=== PATIENT | female | born 1965 | race Caucasian/White ===

== ENCOUNTER 2017-03-31 14:53 | Inpatient (IN) | payer MEDICARE, MEDICAID, OTHER ==
[~2017-03-31] VITALS: Ht 152.4 cm; Wt 63.7 kg
[2017-03-31 15:15] VITALS: BP 173/99; PULSE 93; RESP 20; TEMP 98.8; O2SAT 97
[2017-03-31] MEDS ORDERED: PROV200T11 PO (15:31)
[2017-03-31] MEDS ORDERED: EFFE150C PO (15:31)
[2017-03-31] MEDS ORDERED: LAMO150 PO (15:31)
[2017-03-31] MEDS ORDERED: ARIP1TAB7 PO (15:31)
[2017-03-31] MEDS ORDERED: CLON1TAB PO (15:31)
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
[2017-03-31 16:23] LABS: AUTOMATED NEUTROPHIL # 7.4 TH/MM3 (1.8-7.7); BASOPHIL % 0.4 % (0.0-2.0); EOSINOPHIL % 0.2 % (0.0-4.0); HEMO FLAGS DIFF FINAL; LYMPH % 16.1 % (9.0-44.0); LYMPHOCYTE # 1.6 TH/MM3 (1.0-4.8); MEAN CELL VOLUME 82.9 FL (80.0-100.0); MEAN CORPUSCULAR HEMOGLOBIN 26.5 PG (27.0-34.0); NEUT % 76.3 % (16.0-70.0); PLATELET COUNT 316 TH/MM3 (150-450); RED BLOOD COUNT 4.71 MIL/MM3 (4.00-5.30); RED CELL DISTRIBUTION WIDTH 15.2 % (11.6-17.2); WHITE BLOOD COUNT 9.7 TH/MM3 (4.0-11.0)
[2017-03-31 16:42] LABS: ACETAMINOPHEN 5.2 MCG/ML (10.0-30.0); ALKALINE PHOSPHATASE 74 U/L (45-117); ALT (GPT) 39 U/L (10-53); TOTAL BILIRUBIN ADULT 0.2 MG/DL (0.2-1.0)
[2017-03-31 16:51] LABS: ANION GAP 8 MEQ/L (5-15); AST (GOT) 57 U/L (15-37); BICARBONATE 24.1 MEQ/L (21.0-32.0); BLOOD UREA NITROGEN 12 MG/DL (7-18); CHLORIDE 105 MEQ/L (98-107); GLOMERULAR FILTRATION RATE 80 ML/MIN (>89); POTASSIUM 3.7 MEQ/L (3.5-5.1); SODIUM (NA) 137 MEQ/L (136-145)
[2017-03-31] MEDS ORDERED: LORazepam 0.5 MG TAB PO PRN (17:00)
[2017-03-31] MEDS ORDERED: diphenhydrAMINE HCL 50 MG/ML VIAL IM PRN (17:00)
[2017-03-31] MEDS ORDERED: LORazepam 2 MG/ML VIAL IM PRN ×2 (17:00)
[2017-03-31] MEDS ORDERED: MAGNESIUM HYDROXIDE SUSP 30 ML CUP PO PRN (17:00)
[2017-03-31] MEDS ORDERED: ALUMINUM/MAGNESIUM/SIMETH 30 ML CUP PO PRN (17:00)
[2017-03-31] MEDS ORDERED: LORazepam 1 MG TAB PO PRN (17:00)
[2017-03-31 17:01] LABS: ALCOHOL LESS THAN 3 MG/DL (0-5)
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
[2017-03-31] MEDS ORDERED: PILL SPLITTER OTHER PRN (17:15)
[2017-03-31] MEDS: clonazePAM 1 MG TAB PO SCH (20:11)
[2017-03-31 21:40] VITALS: BP 147/78; PULSE 100; RESP 18; TEMP 99.1; O2SAT 100
[2017-03-31] MEDS: ACETAMINOPHEN 325 MG TAB PO PRN (23:45)
[2017-03-31] MEDS: diphenhydrAMINE HCL 50 MG CAP PO PRN (23:46)
[2017-04-01 06:02] VITALS: BP 122/67; PULSE 78; RESP 18; TEMP 97.6
[2017-04-01] MEDS: VENLAFAXINE HCL XR 75 MG CAP PO SCH (08:49)
[2017-04-01] MEDS: lamoTRIgine 100 MG TAB PO SCH (08:50)
[2017-04-01] MEDS: clonazePAM 1 MG TAB PO SCH ×2 (08:50→20:25)
--- NOTE | 2017-04-01 09:12 | EKG ---
Date Performed: 03/31/2017 Time Performed: 18:20:07 PTAGE: 51 years EKG: Sinus rhythm NORMAL ECG NO PREVIOUS TRACING DOCTOR: Ghanshyam Zamudio Interpretating Date/Time 04/01/2017 09:03:43
[2017-04-01] MEDS: ACETAMINOPHEN 325 MG TAB PO PRN ×3 (09:45→19:32)
[2017-04-01 11:03] LABS: BASOPHIL % 0.4 % (0.0-2.0); EOSINOPHIL # 0.1 TH/MM3 (0-0.4); EOSINOPHIL % 2.1 % (0.0-4.0); HEMATOCRIT 38.3 % (35.0-46.0); HEMO FLAGS DIFF FINAL; LYMPH % 29.8 % (9.0-44.0); LYMPHOCYTE # 1.5 TH/MM3 (1.0-4.8); MEAN CELL VOLUME 82.4 FL (80.0-100.0); MEAN CORPUSCULAR HEMOGLOBIN 26.6 PG (27.0-34.0); MEAN CORPUSCULAR HGB CONC 32.3 % (32.0-36.0); NEUT % 59.7 % (16.0-70.0); PLATELET COUNT 289 TH/MM3 (150-450); RED BLOOD COUNT 4.64 MIL/MM3 (4.00-5.30); RED CELL DISTRIBUTION WIDTH 15.5 % (11.6-17.2); WHITE BLOOD COUNT 5.1 TH/MM3 (4.0-11.0)
[2017-04-01] MEDS: REMOVE OLD PATCH T-DERMAL SCH (14:00)
[2017-04-01] MEDS: NICOTINE 21 MG/24 HR PATCH T-DERMAL SCH (14:00)
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
[2017-04-01 17:13] LABS: HEMOGLOBIN A1a 1.2 %; HEMOGLOBIN A1b 1.6 %; HEMOGLOBIN LA1C 2.1 %
[2017-04-01 18:03] VITALS: BP 111/74; PULSE 75; RESP 18; TEMP 98; O2SAT 98
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
[2017-04-02] MEDS: diphenhydrAMINE HCL 50 MG CAP PO PRN (03:00)
[2017-04-02] MEDS: ACETAMINOPHEN 325 MG TAB PO PRN ×3 (03:15→18:20)
[2017-04-02 05:55] VITALS: BP 122/72; PULSE 81; RESP 18; TEMP 97.4; O2SAT 98
[2017-04-02] MEDS: VENLAFAXINE HCL XR 75 MG CAP PO SCH (07:48)
[2017-04-02] MEDS: clonazePAM 1 MG TAB PO SCH ×2 (07:49→20:21)
[2017-04-02] MEDS: lamoTRIgine 100 MG TAB PO SCH (07:49)
[2017-04-02] MEDS: NICOTINE 21 MG/24 HR PATCH T-DERMAL SCH (09:00)
[2017-04-02] MEDS: REMOVE OLD PATCH T-DERMAL SCH (09:00)
[2017-04-02 11:23] LABS: ANION GAP 3 MEQ/L (5-15); AST (GOT) 34 U/L (15-37); BICARBONATE 27.7 MEQ/L (21.0-32.0); BLOOD UREA NITROGEN 16 MG/DL (7-18); CHLORIDE 103 MEQ/L (98-107); GLOMERULAR FILTRATION RATE 99 ML/MIN (>89); POTASSIUM 4.4 MEQ/L (3.5-5.1); SODIUM (NA) 134 MEQ/L (136-145)
[2017-04-02 11:51] LABS: ALKALINE PHOSPHATASE 65 U/L (45-117); ALT (GPT) 35 U/L (10-53); HDL CHOLESTEROL 41.7 MG/DL (40.0-60.0); LDL CHOLESTEROL 107 MG/DL (0-99); TOTAL BILIRUBIN ADULT 0.2 MG/DL (0.2-1.0)
--- NOTE | 2017-04-02 14:42 | EKG ---
Date Performed: 04/01/2017 Time Performed: 15:15:56 PTAGE: 51 years EKG: Sinus rhythm NORMAL ECG PREVIOUS TRACING : 03/31/2017 18.20 Since previous tracing, no significant change noted DOCTOR: Kuldip Hernandez Interpretating Date/Time 04/02/2017 14:40:12
--- NOTE | 2017-04-02 17:43 | HHI.PYPN ---
Subjective Remarks Patient seen for follow-up, chart review. Patient found interacting with staff patient states he is feeling "fine", patient noted with less pressured speech today. Patient states that she has been participating in all the groups and activities on the unit. Patient reports tolerating medications well. Patient percent of on discharge. When asked if patient is able to be safely accepted back at her home she states that it is her house but unclear whether he'll be a safe discharge back there at this time. Patient denies any psychotic symptoms at this time. Patient denies SI, HI, AVH but continues with some grandiose delusions. Review of Systems Except as stated in HPI: all other systems reviewed are Neg Objective Alert: Yes [place]: Person, Place, Date Mood: Anxious Affect: Restricted Memory Intact: Immediate, Recent, Remote Hallucinations: Other (denies) Delusions: Yes Delusion Type: Grandiose Suicidal: Ideation (denies) Homicidal: Ideation (denies) Insight/Judgment Patient will limited insight, impulse control and judgment Labs Labs reviewed. Test 04/02/17 10:15 Sodium Level 134 MEQ/L Potassium Level 4.4 MEQ/L Chloride Level 103 MEQ/L Carbon Dioxide Level 27.7 MEQ/L Anion Gap 3 MEQ/L Blood Urea Nitrogen 16 MG/DL Creatinine 0.63 MG/DL Estimat Glomerular Filtration 99 ML/MIN Rate Random Glucose 83 MG/DL Calcium Level 8.6 MG/DL Total Bilirubin 0.2 MG/DL Aspartate Amino Transf 34 U/L (AST/SGOT) Alanine Aminotransferase 35 U/L (ALT/SGPT) Alkaline Phosphatase 65 U/L Total Protein 7.0 GM/DL Albumin 3.2 GM/DL Triglycerides Level 135 MG/DL Cholesterol Level 176 MG/DL LDL Cholesterol 107 MG/DL HDL Cholesterol 41.7 MG/DL Cholesterol/HDL Ratio 4.22 RATIO Vitamin B12 Level 480 PG/ML 25-Hydroxy Vitamin D Total 30.1 ng/ML Thyroid Stimulating Hormone 0.908 uIU/ML 3rd Gen Vitals/IOs Vital Signs Date Time Temp Pulse Resp B/P Pulse Ox O2 Delivery O2 Flow Rate FiO2 04/02/17 05:55 97.4 81 18 122/72 98 Intake and Output 04/01/17 04/01/17 04/01/17 07:59 15:59 23:59 Intake Total 240 ml Balance 240 ml Assessment & Plan Problem List: (1) Bipolar affective disorder, currently manic, severe, with psychotic features ICD Code: F31.2 Assessment & Plan Patient at this time continues to be noted to have some pressured speech but less than yesterday, continues to be somewhat tangential but compliant with medications. If patient continues to endorse manic symptoms will consider increasing Lamictal to 200 mg by mouth daily for mood stabilization. Positive medication response and adverse drug reactions. Discharge planning in progress Justification for Cont. Inpt. Patient at risk for further decompensation if at lower level of care. Discharge Planning In progress Messi Briggs MD Apr 02, 2017 17:43
[2017-04-02 17:48] VITALS: PULSE 82; RESP 18; TEMP 98.5; O2SAT 98
[2017-04-03] MEDS: ACETAMINOPHEN 325 MG TAB PO PRN ×3 (05:40→17:43)
[2017-04-03 05:51] VITALS: BP 141/70; PULSE 76; RESP 16; TEMP 97.9; O2SAT 98
[2017-04-03] MEDS: clonazePAM 1 MG TAB PO SCH ×2 (07:44→20:44)
[2017-04-03] MEDS: VENLAFAXINE HCL XR 75 MG CAP PO SCH (07:44)
[2017-04-03] MEDS: NICOTINE 21 MG/24 HR PATCH T-DERMAL SCH (07:45)
[2017-04-03] MEDS: REMOVE OLD PATCH T-DERMAL SCH (07:45)
[2017-04-03] MEDS: lamoTRIgine 100 MG TAB PO SCH (07:45)
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
[2017-04-03 18:27] VITALS: BP 148/74; PULSE 85; RESP 17; TEMP 98.1; O2SAT 98
[2017-04-03] MEDS: diphenhydrAMINE HCL 50 MG CAP PO PRN (20:44)
[2017-04-04] MEDS: ACETAMINOPHEN 325 MG TAB PO PRN ×3 (05:54→19:13)
[2017-04-04 06:09] VITALS: BP 130/82; PULSE 72; RESP 19; TEMP 98.4; O2SAT 100
[2017-04-04] MEDS: NICOTINE 21 MG/24 HR PATCH T-DERMAL SCH (09:00)
[2017-04-04] MEDS: clonazePAM 1 MG TAB PO SCH ×2 (09:00→20:05)
[2017-04-04] MEDS: lamoTRIgine 100 MG TAB PO SCH (09:00)
[2017-04-04] MEDS: VENLAFAXINE HCL XR 75 MG CAP PO SCH (09:00)
[2017-04-04] MEDS: REMOVE OLD PATCH T-DERMAL SCH (09:00)
[2017-04-04 17:00] VITALS: BP 129/72; PULSE 84; RESP 18; TEMP 98.6; O2SAT 96
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
[2017-04-05 05:34] VITALS: BP 119/78; PULSE 78; RESP 18; TEMP 97.8; O2SAT 97
[2017-04-05] MEDS: VENLAFAXINE HCL XR 75 MG CAP PO SCH (08:10)
[2017-04-05] MEDS: lamoTRIgine 100 MG TAB PO SCH (08:10)
[2017-04-05] MEDS: clonazePAM 1 MG TAB PO SCH ×2 (08:10→20:07)
[2017-04-05] MEDS: NICOTINE 21 MG/24 HR PATCH T-DERMAL SCH (08:22)
[2017-04-05] MEDS: REMOVE OLD PATCH T-DERMAL SCH (08:22)
[2017-04-05 18:10] VITALS: BP 113/72; PULSE 87; RESP 16; TEMP 99; O2SAT 99
[2017-04-05] MEDS: ACETAMINOPHEN 325 MG TAB PO PRN (18:23)
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
[2017-04-05] MEDS: diphenhydrAMINE HCL 50 MG CAP PO PRN (20:07)
[2017-04-06 05:46] VITALS: BP 112/82; PULSE 79; RESP 18; TEMP 98.2; O2SAT 97
[2017-04-06] MEDS: ARIPiprazole 30 MG TAB PO SCH (07:53)
[2017-04-06] MEDS: lamoTRIgine 100 MG TAB PO SCH (07:54)
[2017-04-06] MEDS: clonazePAM 1 MG TAB PO SCH ×2 (07:55→20:39)
[2017-04-06] MEDS: VENLAFAXINE HCL XR 75 MG CAP PO SCH (07:55)
[2017-04-06] MEDS: NICOTINE 21 MG/24 HR PATCH T-DERMAL SCH (07:55)
[2017-04-06] MEDS: REMOVE OLD PATCH T-DERMAL SCH (07:55)
[2017-04-06] MEDS: ACETAMINOPHEN 325 MG TAB PO PRN ×3 (07:57→18:40)
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
[2017-04-06 17:45] VITALS: BP 106/61; PULSE 77; RESP 18; TEMP 98.4; O2SAT 97
[2017-04-06] MEDS: diphenhydrAMINE HCL 50 MG CAP PO PRN (20:39)
[2017-04-07 06:16] VITALS: BP 133/63; PULSE 74; RESP 18; TEMP 98; O2SAT 98
[2017-04-07] MEDS: lamoTRIgine 100 MG TAB PO SCH (08:25)
[2017-04-07] MEDS: ARIPiprazole 30 MG TAB PO SCH (08:25)
[2017-04-07] MEDS: clonazePAM 1 MG TAB PO SCH (08:25)
[2017-04-07] MEDS: VENLAFAXINE HCL XR 75 MG CAP PO SCH (08:25)
[2017-04-07] MEDS ORDERED: VENL75XR PO (08:43)
[2017-04-07] MEDS ORDERED: ABIL30TA2 PO (08:43)
[2017-04-07] MEDS ORDERED: CLON1 PO (08:43)
[2017-04-07] MEDS ORDERED: LAMO150T PO (08:43)
[2017-04-07] MEDS: REMOVE OLD PATCH T-DERMAL SCH (09:00)
[2017-04-07] MEDS: NICOTINE 21 MG/24 HR PATCH T-DERMAL SCH (09:00)
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
== END 2017-04-07 12:30 | disposition home or self-care (01) | DRG 885 ==
LOC: NEPD 14:53 → NEDA 16:51 → H270 19:25
PROVIDERS: ADMIT Student in an Organized Health Care Education/Training Program; ATTEND Student in an Organized Health Care Education/Training Program
DX: F31.2 Bipolar disorder, current episode manic severe with psychotic features (principal); Z91.14 Patient's other noncompliance with medication regimen
CPT/HCPCS: 73130; 73564; 80053; 80061; 80307; 82306; 82607; 83036; 84443; 85025; 93005; 99285; Q0163

== ENCOUNTER 2017-06-07 14:18 | Emergency (ER) | payer MEDICARE, MEDICAID ==
[~2017-06-07] VITALS: Ht 152.4 cm; Wt 60.0 kg
[~2017-06-07 14:18] MED LIST: ABIL30TA2 PO; ARIP1TAB7 PO; CLON1 PO; LAMO150T PO; PROV200T11 PO; VENL75XR PO
[2017-06-07 14:20] VITALS: BP 96/60; PULSE 87; RESP 15; TEMP 98.4; O2SAT 98
[2017-06-07] MEDS ORDERED: BACT800T5 PO (19:22)
[2017-06-07] MEDS ORDERED: unknown meds (19:26)
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
--- NOTE | 2017-06-07 19:27 | PD ---
HPI Chief Complaint: Lump, Cyst, Hernia Time Seen by Provider: 19:15 Travel History International Travel<30 days: No Contact w/Intl Traveler<30days: No Traveled to known affect area: No History of Present Illness HPI 51-year-old white female a resident at [facility] presents emergency Department with a counselor for evaluation of a left posterior thigh skin infection. She states that this is been present for the past week. The area is painful. The area is also red and tender. She states that she has had some draining. She denies any history of skin infections. No fever chills. No nausea vomiting. No bowel pain or symptoms. PFSH Past Medical History Narrative Medical Anxiety, bipolar Bipolar Disorder: Yes Anxiety: Yes Cancer: No (per pt) Cardiovascular Problems: No Cerebrovascular Accident: No Diabetes: No (per pt) Diminished Hearing: No Headaches: No (per pt) Musculoskeletal: No Psychiatric: Yes (Bipolar per pt 2003) Respiratory: No Migraines: No Seizures: No Tetanus Vaccination: < 5 Years Tubal Ligation: Yes Past Surgical History Abdominal Surgery: No Cardiac Surgery: No Ear Surgery: No Endocrine Surgery: No Eye Surgery: No Genitourinary Surgery: No Gynecologic Surgery: No Oral Surgery: No Thoracic Surgery: No Other Surgery: Yes (bilat. bunion surgery) Social History Alcohol Use: No Tobacco Use: No Substance Use: No Allergies-Medications (Allergen,Severity, Reaction): Coded Allergies: Penicillins (Verified Allergy, Unknown, 03/31/17) Reported Meds & Prescriptions Reported Meds & Active Scripts Active Bactrim DS (Sulfamethoxazole-Trimethoprim) 800-160 Mg Tab 1 Tab PO BID Abilify (Aripiprazole) 30 Mg Tab 30 Mg PO DAILY 30 Days Effexor XR 24 HR (Venlafaxine HCl) 75 Mg Cap 150 Mg PO DAILY 30 Days Lamotrigine 150 Mg Tab 150 Mg PO DAILY Klonopin (Clonazepam) 1 Mg Tab 1 Mg PO BID 15 Days Reported Provigil (Modafinil) 200 Mg Tab 200 Mg PO BID Abilify (Aripiprazole) 20 Mg Tab 20 Mg PO DAILY Review of Systems Except as stated in HPI: all other systems reviewed are Neg Physical Exam Narrative GENERAL: This is a well-nourished, well-developed patient, in no apparent distress. Patient's examined with the [employer] police present. SKIN: Patient has a 2 cm erythema with open draining area to the posterior left proximal thigh. It is tender but there is no fluctuance or pointing. The skin is somewhat indurated. Ecchymoses or lesions. Warm and dry. HEAD: Atraumatic. Normocephalic. EYES: PERRL, EOMI, no discharge or injection. No scleral icterus. EARS: Clear NOSE: Nasal turbinates appear normal. THROAT: Mucosa pink and moist. Airway patent. NECK: Trachea midline. supple, moves head freely. LUNGS: Clear to auscultation. CV: Regular in rhythm. ABDOMEN: Soft nontender. EXT: No clubbing cyanosis or edema. Data Data Last Documented VS Vital Signs Date Time Temp Pulse Resp B/P (MAP) Pulse Ox O2 Delivery O2 Flow Rate FiO2 06/07/17 14:20 98.4 87 15 96/60 (72) 98 [facility] Medical Decision Making Medical Screen Exam Complete: Yes Emergency Medical Condition: Yes Medical Record Reviewed: Yes Differential Diagnosis MDM: High Differential diagnoses: Abscess, folliculitis, cellulitis, lymphangitis, abrasion, contact dermatitis Narrative Course Patient has a open draining abscess to the posterior left thigh. Diagnosis Primary Impression: left posterior thigh abscess Patient Instructions: General Instructions Additional Instructions: Rest. Elevation. keep clean and dry. Warm compresses. Daily wound care with soap, water and Neosporin. Three Advil every 6 hours as needed for pain. Bactrim DS. Follow-up with a primary care doctor in one week. Return to the ER for any problems. Med/Other Pt SpecificInfo: Prescription(s) given, Wound Care Scripts Sulfamethoxazole-Trimethoprim (Bactrim DS) 800-160 Mg Tab 1 TAB PO BID for Infection, #20 TAB 0 Refills Prov: Nida Huynh DO 06/07/17 Disposition: 65 DISC TO [facility] Condition: Stable Bon Lnig Jun 07, 2017 19:27
--- NOTE | 2017-06-07 19:27 | PD ---
HPI Chief Complaint: Lump, Cyst, Hernia Time Seen by Provider: 19:15 Travel History International Travel<30 days: No Contact w/Intl Traveler<30days: No Traveled to known affect area: No History of Present Illness HPI 51-year-old white female a resident at [facility] presents emergency Department with a counselor for evaluation of a left posterior thigh skin infection. She states that this is been present for the past week. The area is painful. The area is also red and tender. She states that she has had some draining. She denies any history of skin infections. No fever chills. No nausea vomiting. No bowel pain or symptoms. PFSH Past Medical History Narrative Medical Anxiety, bipolar Bipolar Disorder: Yes Anxiety: Yes Cancer: No (per pt) Cardiovascular Problems: No Cerebrovascular Accident: No Diabetes: No (per pt) Diminished Hearing: No Headaches: No (per pt) Musculoskeletal: No Psychiatric: Yes (Bipolar per pt 2003) Respiratory: No Migraines: No Seizures: No Tetanus Vaccination: < 5 Years Tubal Ligation: Yes Past Surgical History Abdominal Surgery: No Cardiac Surgery: No Ear Surgery: No Endocrine Surgery: No Eye Surgery: No Genitourinary Surgery: No Gynecologic Surgery: No Oral Surgery: No Thoracic Surgery: No Other Surgery: Yes (bilat. bunion surgery) Social History Alcohol Use: No Tobacco Use: No Substance Use: No Allergies-Medications (Allergen,Severity, Reaction): Coded Allergies: Penicillins (Verified Allergy, Unknown, 03/31/17) Reported Meds & Prescriptions Reported Meds & Active Scripts Active Bactrim DS (Sulfamethoxazole-Trimethoprim) 800-160 Mg Tab 1 Tab PO BID Abilify (Aripiprazole) 30 Mg Tab 30 Mg PO DAILY 30 Days Effexor XR 24 HR (Venlafaxine HCl) 75 Mg Cap 150 Mg PO DAILY 30 Days Lamotrigine 150 Mg Tab 150 Mg PO DAILY Klonopin (Clonazepam) 1 Mg Tab 1 Mg PO BID 15 Days Reported Provigil (Modafinil) 200 Mg Tab 200 Mg PO BID Abilify (Aripiprazole) 20 Mg Tab 20 Mg PO DAILY Review of Systems Except as stated in HPI: all other systems reviewed are Neg Physical Exam Narrative GENERAL: This is a well-nourished, well-developed patient, in no apparent distress. Patient's examined with the [place] police present. SKIN: Patient has a 2 cm erythema with open draining area to the posterior left proximal thigh. It is tender but there is no fluctuance or pointing. The skin is somewhat indurated. Ecchymoses or lesions. Warm and dry. HEAD: Atraumatic. Normocephalic. EYES: PERRL, EOMI, no discharge or injection. No scleral icterus. EARS: Clear NOSE: Nasal turbinates appear normal. THROAT: Mucosa pink and moist. Airway patent. NECK: Trachea midline. supple, moves head freely. LUNGS: Clear to auscultation. CV: Regular in rhythm. ABDOMEN: Soft nontender. EXT: No clubbing cyanosis or edema. Data Data Last Documented VS Vital Signs Date Time Temp Pulse Resp B/P (MAP) Pulse Ox O2 Delivery O2 Flow Rate FiO2 06/07/17 14:20 98.4 87 15 96/60 (72) 98 [facility] Medical Decision Making Medical Screen Exam Complete: Yes Emergency Medical Condition: Yes Medical Record Reviewed: Yes Differential Diagnosis MDM: High Differential diagnoses: Abscess, folliculitis, cellulitis, lymphangitis, abrasion, contact dermatitis Narrative Course Patient has a open draining abscess to the posterior left thigh. Diagnosis Primary Impression: left posterior thigh abscess Patient Instructions: General Instructions Additional Instructions: Rest. Elevation. keep clean and dry. Warm compresses. Daily wound care with soap, water and Neosporin. Three Advil every 6 hours as needed for pain. Bactrim DS. Follow-up with a primary care doctor in one week. Return to the ER for any problems. Med/Other Pt SpecificInfo: Prescription(s) given, Wound Care Scripts Sulfamethoxazole-Trimethoprim (Bactrim DS) 800-160 Mg Tab 1 TAB PO BID for Infection, #20 TAB 0 Refills Prov: Nida Huynh DO 06/07/17 Disposition: 65 DISC TO [facility] Condition: Stable Bon Ling Jun 07, 2017 19:27
[2017-06-07 19:51] VITALS: BP 108/54
== END 2017-06-07 19:50 ==
LOC: NEPD 14:18
DX: L02.416 Cutaneous abscess of left lower limb (principal)
CPT/HCPCS: 99283

== ENCOUNTER 2017-06-09 14:32 | Emergency (ER) | payer MEDICARE, MEDICAID ==
[~2017-06-09] VITALS: Ht 152.4 cm; Wt 62.0 kg
[~2017-06-09 14:32] MED LIST changes: -ABIL30TA2 PO; -ARIP1TAB7 PO; +BACT800T5 PO; -CLON1 PO; -LAMO150T PO; -PROV200T11 PO; -VENL75XR PO; +unknown meds
[2017-06-09 14:42] VITALS: TEMP 98.1
--- NOTE | 2017-06-09 14:53 | PD ---
HPI Chief Complaint: Wound/Suture/Staple Re-Check Time Seen by Provider: 14:51 Travel History International Travel<30 days: No Contact w/Intl Traveler<30days: No Traveled to known affect area: No History of Present Illness HPI 51-year-old female presents emergency department from [facility] for evaluation of an abscess to her left posterior thigh. She said she was seen here 2 days ago and mentioned it and was given antibiotics. Has been taking Bactrim as prescribed. Says there is been no improvement in the abscess. Denies fever, vomiting. Took ibuprofen 800 mg prior to arrival. Rates pain 5/ 10. Describes it as an aching sensation. Pain is aggravated with sitting or palpation of the area. Has no other medical complaints. Allergies to penicillins. No other modifying factors or associated signs and symptoms. PFSH Past Medical History Bipolar Disorder: Yes Anxiety: Yes Cardiovascular Problems: No Cerebrovascular Accident: No Diabetes: No (per pt) Diminished Hearing: No Musculoskeletal: No Psychiatric: Yes (Bipolar per pt 2003) Respiratory: No Migraines: No Seizures: No ?: Not Tubal Ligation: Yes Past Surgical History Abdominal Surgery: No Cardiac Surgery: No Ear Surgery: No Endocrine Surgery: No Eye Surgery: No Genitourinary Surgery: No Gynecologic Surgery: No Oral Surgery: No Thoracic Surgery: No Other Surgery: Yes (bilat. bunion surgery) Social History Alcohol Use: No Tobacco Use: No Substance Use: No Allergies-Medications (Allergen,Severity, Reaction): Coded Allergies: Penicillins (Verified Allergy, Unknown, 03/31/17) Reported Meds & Prescriptions Reported Meds & Active Scripts Active Bactrim DS (Sulfamethoxazole-Trimethoprim) 800-160 Mg Tab 1 Tab PO BID Reported [unknown meds] Review of Systems Except as stated in HPI: all other systems reviewed are Neg Physical Exam Narrative GENERAL: Well-nourished, well-developed female patient, in no acute distress; afebrile, nontoxic-appearing SKIN: There is an indurated area to the left posterior upper thigh which measures about 2cm cm in diameter. It is fluctuant and it is open and draining purulent drainage. There is a zone of inflammation around it but no lymphangitis. HEAD: Atraumatic. Normocephalic. EYES: Pupils equal and round. No scleral icterus. No injection or drainage. ENT: Mucosa pink and moist. Airway patent. NECK: Trachea midline. CARDIOVASCULAR: Regular rate. RESPIRATORY: No accessory muscle use. GASTROINTESTINAL: Flat. MUSCULOSKELETAL: No obvious deformities. No clubbing. No cyanosis. No edema. NEUROLOGICAL: Awake and alert. Oriented 3. No obvious cranial nerve deficits. Motor grossly within normal limits. Normal speech. PSYCHIATRIC: Appropriate mood and affect; insight and judgment normal. Data Data Last Documented VS Vital Signs Date Time Temp Pulse Resp B/P (MAP) Pulse Ox O2 Delivery O2 Flow Rate FiO2 06/09/17 14:42 98.1 Orders Orders Ed Discharge Order (06/09/17 14:53) Wound Culture And Gram Stain (06/09/17 14:54) [facility] Medical Decision Making Medical Screen Exam Complete: Yes Emergency Medical Condition: Yes Medical Record Reviewed: Yes Differential Diagnosis Abscess, cellulitis, folliculitis Narrative Course 51-year-old female with an abscess of her left upper posterior thigh. She is here from [facility] for evaluation. She was seen on June 07 and was prescribed Bactrim which she has been taking. The abscess is now open and draining. The abscess was squeezed and drained. Wound culture pending. She is afebrile and nontoxic-appearing. Denies fever, vomiting. Instructed patient to continue Bactrim as prescribed. Patient has ibuprofen for pain. Instructed patient to follow up with primary care provider. Patient verbalizes understanding and agreement with treatment plan. Patient is medically cleared and stable for discharge. Discussed reasons to return to the emergency department. Patient agrees with treatment plan. The patients vital signs are stable and the patient is stable for outpatient follow-up and treatment. Patient discharged home, stable and in no acute distress. Diagnosis Primary Impression: Abscess of left thigh Referrals: [facility] Primary Care Physician Patient Instructions: Abscess (ED), Abscess Follow-up (ED), General Instructions Additional Instructions: Complete full course of antibiotics Warm compresses to the affected area Keep area clean and dry Ibuprofen or Tylenol as directed and as needed for pain and inflammation Follow-up with primary care provider Return to emergency department immediately with worsening of symptoms Med/Other Pt SpecificInfo: No Change to Meds, No Meds Exist/No RX given Disposition: 01 DISCHARGE HOME Condition: Stable Shelly Vides Jun 09, 2017 14:53
[2017-06-09 14:54] VITALS: BP 107/64; PULSE 72; RESP 17; O2SAT 94
--- NOTE | 2017-06-09 15:07 | PD ---
Physical Exam Date Seen by Provider: Jun 09, 2017 Narrative This patient presents for a patient of an abscess on her left posterior thigh just distal to the buttock. She was seen here 2 days ago for same. She was placed on Bactrim. She was then sent to [facility] under a [place] [facility]. She is back with us today for recheck. Data Data Last Documented VS Vital Signs Date Time Temp Pulse Resp B/P (MAP) Pulse Ox O2 Delivery O2 Flow Rate FiO2 06/09/17 14:54 72 17 107/64 (78) 94 Room Air 06/09/17 14:42 98.1 Orders Orders Ed Discharge Order (06/09/17 14:53) Wound Culture And Gram Stain (06/09/17 14:54) MDM Supervised Visit with CR: Yes Narrative Course I, Dr. Ocampo, have reviewed the advance practice practitioner's documentation and am in agreement, met with the patient face to face, made the diagnosis, and the medical decision making was done by me. *My assessment and Findings: Her abscess is now spontaneously draining. Please see Shelly Vides NP's note for results of laboratory and radiographic evaluation, ED course, final diagnosis and disposition Diagnosis Primary Impression: Abscess of left thigh Referrals: [facility] Primary Care Physician Patient Instructions: General Instructions, Abscess (ED), Abscess Follow-up (ED ) Additional Instruction: Complete full course of antibiotics Warm compresses to the affected area Keep area clean and dry Ibuprofen or Tylenol as directed and as needed for pain and inflammation Follow-up with primary care provider Return to emergency department immediately with worsening of symptoms Disposition: 01 DISCHARGE HOME Condition: Stable Renee Ocampo MD Jun 09, 2017 15:07
== END 2017-06-09 15:22 | disposition home or self-care (01) ==
LOC: NEPD 14:32
DX: L02.416 Cutaneous abscess of left lower limb (principal); A49.02 Methicillin resistant Staphylococcus aureus infection, unspecified site; F31.9 Bipolar disorder, unspecified; F41.9 Anxiety disorder, unspecified; Z51.89 Encounter for other specified aftercare; Z88.0 Allergy status to penicillin
CPT/HCPCS: 86403; 87070; 87186; 87205; 99283